=== PATIENT | female | born 1970 | race African-American/Black ===

== ENCOUNTER 2018-12-30 13:36 | Emergency (ER) | payer MEDICAID ==
[~2018-12-30] VITALS: Ht 170.2 cm; Wt 63.5 kg
[~2018-12-30 13:36] MED LIST: IBUPROFEN600 MG ORAL; NKM
--- NOTE | 2018-12-30 13:52 | NUR ---
ED Nurse Note: Pt came in from home, reported [place]. now L foot swelling non-pitting, itchiness. AOx4, VSS raisa. Will cont to monitor.
[2018-12-30 13:54] VITALS: BP 110/72
--- NOTE | 2018-12-30 14:15 | Emergency Room Report ---
History of Present Illness General Chief Complaint: Skin Rash/Abscess Source: Patient Present Illness HPI 48-year-old female presents to the emergency department complaining of itching, swelling and burning sensation to the left ankle since yesterday. She denies pain. Patient reports that she sustained some type of insect bite and she has been scratching it. Patient reports upon awakening she has had even more swelling and now some erythema around the bite. Pt. denies fevers, chills or swollen tender lymph nodes. Denies lesions/rashes elsewhere on the body. Denies new medications or body washes or creams. Denies swelling of the lips, tongue , throat or airway. Denies wheezing, or shortness of breath. Denies recent travel , recent illness or ill contacts. Denies blisters, oral lesions, or sloughing of the skin. Allergies: Coded Allergies: No Known Allergies (Unverified , 12/17/12) Patient History Past Medical History: see triage record Past Surgical History: none Pertinent Family History: none Last Menstrual Period: menopause Immunizations: UTD Reviewed Nursing Documentation: PMH: Agreed; PSxH: Agreed Nursing Documentation-PMH Past Medical History: No Stated History Review of Systems All Other Systems: negative except mentioned in HPI Physical Exam Vital Signs Date Time Temp Pulse Resp B/P (MAP) Pulse Ox O2 Delivery O2 Flow Rate FiO2 12/30/18 13:43 98.2 73 18 110/72 (85) 99 Room Air Sp02 EP Interpretation: reviewed, normal General Appearance: no apparent distress, alert, GCS 15, non-toxic Head: normocephalic, atraumatic Eyes: bilateral eye normal inspection, bilateral eye PERRL ENT: hearing grossly normal, normal voice Neck: full range of motion Respiratory: chest non-tender, lungs clear, normal breath sounds, no wheezing, speaking full sentences Cardiovascular #1: regular rate, rhythm, normal capillary refill Cardiovascular #2: 2+ dorsalis pedis (R), 2+ dorsalis pedis (L) Musculoskeletal: back normal, gait/station normal, normal range of motion, non- tender Neurologic: alert, oriented x3, responsive, motor strength/tone normal, sensory intact, normal gait, speech normal, grossly normal Psychiatric: judgement/insight normal Skin: other - Swelling and erythema of the left foot/ankle surrounding a small papule consistent with insect bite. no blisters or vessicles. Medical Decision Making BENJI Attestation Dr. Paz is my supervising Physician whom patient management has been discussed with. Diagnostic Impression: Primary Impression: Insect bite of ankle, infected Qualified Codes: S90.562A - Insect bite (nonvenomous), left ankle, initial encounter; L08.9 - Local infection of the skin and subcutaneous tissue, unspecified; W57.XXXA - Bitten or stung by nonvenomous insect and other nonvenomous arthropods, initial encounter ER Course 48-year-old female presents to the emergency department complaining of itching, swelling and burning sensation to the left ankle since yesterday. She denies pain. Patient reports that she sustained some type of insect bite and she has been scratching it. Patient reports upon awakening she has had even more swelling and now some erythema around the bite. Pt. denies fevers, chills or swollen tender lymph nodes. Denies lesions/rashes elsewhere on the body. Denies new medications or body washes or creams. Denies swelling of the lips, tongue , throat or airway. Denies wheezing, or shortness of breath. Denies recent travel , recent illness or ill contacts. Denies blisters, oral lesions, or sloughing of the skin. Ddx considered but are not limited to cellulitis, scabies, insect bites, tic bites, spider bites, contact dermatitis, Drug reaction, allergic reaction, fungal infection, lice. Vital signs: are WNL, pt. is afebrile H&PE are most consistent with infected insect bite with localized reaction of the left foot. ORDERS: none required at this time, the diagnosis is clinical ED INTERVENTIONS: None required at this time. DISCHARGE: At this time pt. is stable for d/c to home. Will provide printed patient care instructions, and any necessary prescriptions. Care plan and follow up instructions have been discussed with the patient prior to discharge. Last Vital Signs Date Time Temp Pulse Resp B/P (MAP) Pulse Ox O2 Delivery O2 Flow Rate FiO2 12/30/18 13:54 98.2 87 18 110/72 98 Room Air Disposition: HOME, SELF-CARE Condition: Stable Scripts Diphenhydramine Hcl (BENADRYL ALLERGY) 25 Mg Tablet 25 MG PO Q6HR, #20 TAB Prov: Franca Flores 7/20/19 Hydrocortisone 2% Cream (ANTI-ITCH 2% CREAM) Y Cr 1 APPLIC TP Q6HR, #28 GM Prov: Franca Flores 12/30/18 Diphenhydramine Hcl/Zinc Acet (BENADRYL ITCH STOPPING CRM) 28.3 Gm Cream..g. 1 APPLIC TP Q6HR, #28 GM Prov: Franca Flores 12/30/18 Trimethoprim/Sulfamethoxazole 160/800* (BACTRIM DS TABLET*) 1 Each Tablet 1 TAB ORAL TWICE A DAY for 7 Days, #14 TAB Prov: Franca Flores 12/30/18 Cephalexin* (KEFLEX*) 500 Mg Capsule 500 MG ORAL EVERY 12 HOURS for 7 Days, #14 CAP 0 Refills Prov: Franca Flores 12/30/18 Patient Instructions: Cellulitis, [id number], Insect Bite, [id number] Additional Instructions: Take medications as directed. Follow up with a Primary Care Provider in 3-5 days, even if your symptoms have resolved. --Please review list of primary care clinics, if you do not already have a primary care provider Return sooner to ED if new symptoms occur, or current symptoms become worse. Do not drink alcohol, drive, or operate heavy machinery while taking Benadryl as this may cause drowsiness. - Please note that this Emergency Department Report was dictated using [employer] interventional technology software, occasionally this can lead to erroneous entry secondary to interpretation by the dictation equipment. Franca Flores Dec 30, 2018 14:15
[2018-12-30] MEDS ORDERED: ANTI-ITCH28 G1 TP (14:24)
[2018-12-30] MEDS ORDERED: BENADRYL ALLERG25 M1 PO (14:24)
[2018-12-30] MEDS ORDERED: BACTRIM DS TAB1 EAC1 ORAL (14:24)
[2018-12-30] MEDS ORDERED: BENADRYL ITCH28.3 G1 TP (14:24)
[2018-12-30] MEDS ORDERED: CEPHALEXIN500 MG ORAL (14:24)
[2018-12-30 14:29] VITALS: BP 110/72
--- NOTE | 2018-12-30 14:29 | NUR ---
ER DISCHARGE NOTE: Patient is cleared to be discharged per ERMD, pt is aox4, on room air, with stable vital signs. pt was given dc and prescription instructions, pt was able to verbalize understanding, pt id band removed. pt is able to ambulate with steady gait. pt took all belongings.
== END 2018-12-30 14:29 | disposition home or self-care (01) ==
LOC: EMR 14:20
DX: S60.562A Insect bite (nonvenomous) of left hand, initial encounter (principal); L08.9 Local infection of the skin and subcutaneous tissue, unspecified; W57.XXXA Bitten or stung by nonvenomous insect and other nonvenomous arthropods, initial encounter
CPT/HCPCS: 99283